=== PATIENT | female | born 1975 | race Caucasian/White ===

== ENCOUNTER 2019-03-09 23:59 | Inpatient (IN) | payer MEDICAID ==
[~2019-03-09] VITALS: Ht 165.1 cm; Wt 100.0 kg
[2019-03-10] MEDS ORDERED: normal saline 1000ML IV soln IVB ONE (00:10)
[2019-03-10 00:18] LABS: BASOPHILS # (AUTO) 0.2 X10'3 (0-0.2); BASOPHILS % (AUTO) 1.6 % (0-1); EOSINOPHILS # (AUTO) 0.2 X10'3 (0-0.9); EOSINOPHILS % (AUTO) 1.7 % (0-6); HEMATOCRIT 34.1 % (35.0-45.0); HEMOGLOBIN 11.8 g/dl (12.0-16.0); LYMPHOCYTES # (AUTO) 3.3 X10'3 (1.1-4.8); LYMPHOCYTES % (AUTO) 23.1 % (21-51); MEAN CORPUSCULAR HEMOGLOBIN 31.1 PG (27.0-31.0); MEAN CORPUSCULAR HGB CONC 34.7 g/dL (33.0-36.5); MEAN CORPUSCULAR VOLUME 89.7 FL (78-98); MEAN PLATELET VOLUME 7.7 FL (7.4-10.4); MONOCYTES # (AUTO) 0.8 X10'3 (0-0.9); MONOCYTES % (AUTO) 5.4 % (2-12); NEUTROPHILS # (AUTO) 9.7 X10'3 (1.8-7.7); NEUTROPHILS % (AUTO) 68.2 % (42-75); PLATELET COUNT 411 X10'3 (140-440); RED CELL DISTRIBUTION WIDTH 16.7 % (11.5-14.5); WHITE BLOOD COUNT 14.2 X10'3 (4.5-11.0)
[2019-03-10 00:30] LABS: ALANINE AMINOTRANSFERASE 29 U/L (12-78); ALBUMIN 2.5 G/DL (3.4-5.0); ALBUMIN/GLOBULIN RATIO 0.7 (1.1-1.5); ALKALINE PHOSPHATASE 96 IU/L (46-116); ANION GAP 6 (8-16); ASPARTATE AMINO TRANSFERASE 28 U/L (10-37); BILIRUBIN,TOTAL 0.4 MG/DL (0.1-1.0); BLOOD UREA NITROGEN 23 MG/DL (7-18); BUN/CREATININE RATIO 15.5 (6.6-38.0); CALCIUM 8.3 MG/DL (8.5-10.1); CHLORIDE 102 MMOL/L (99-107); CREATININE 1.48 MG/DL (0.40-0.90); GLUCOSE 341 MG/DL (70-104); PARTIAL THROMBOPLASTIN TIME 27 SECONDS (22-32); SODIUM 135 MMOL/L (135-145); TOTAL CARBON DIOXIDE 26.7 MMOL/L (24-32); TOTAL PROTEIN 6.3 G/DL (6.4-8.2); eGFR 38 ML/MIN
--- NOTE | 2019-03-10 00:33 | NUR ---
PT UNABLE TO VOID FOR UA AT THIS TIME.
[2019-03-10 00:35] LABS: C-REACTIVE PROTEIN 1.19 MG/DL (0.0-0.5); MAGNESIUM 1.5 MG/DL (1.5-2.4)
[2019-03-10] MEDS ORDERED: metoprolol tartrate 1mg/ml inj IV PRN (00:45)
[2019-03-10] MEDS ORDERED: insulin regular, human 10 units/0.1 ml syringe SQ ONE (00:45)
[2019-03-10] MEDS ORDERED: nitroGLYCERIN 0.4mg/hour patch TD ONE (00:45)
[2019-03-10] MEDS ORDERED: carvedilol 6.25mg tablet PO ONE (00:45)
[2019-03-10 01:00] LABS: ETHANOL < 0.010 GM/DL (0.0-0.010)
[2019-03-10] MEDS ORDERED: magnesium 2GM in 50ml NS 50 ML IV ONE (01:05)
[2019-03-10] MEDS ORDERED: LANTUS SQ (01:22)
[2019-03-10] MEDS ORDERED: INSU100C4 SQ (01:22)
[2019-03-10] MEDS ORDERED: iohexol 350MG/ML 100ml bottle IV ONE (01:32)
[2019-03-10] MEDS ORDERED: LIRA0.6P2 SQ (01:37)
[2019-03-10] MEDS ORDERED: OMEP40CA13 PO (01:37)
[2019-03-10] MEDS ORDERED: CARV-50 PO (01:37)
[2019-03-10] MEDS ORDERED: LISI-600 PO (01:37)
[2019-03-10] MEDS ORDERED: IBUP-1986 PO (01:37)
[2019-03-10] MEDS ORDERED: LURA40TA3 PO (01:37)
[2019-03-10] MEDS ORDERED: METO-292 PO (01:37)
[2019-03-10] MEDS ORDERED: GABA-532 PO (01:37)
[2019-03-10] MEDS ORDERED: CHOL500049 PO (01:37)
[2019-03-10] MEDS ORDERED: CETI10TA15 PO (01:37)
[2019-03-10] MEDS ORDERED: CLOP75TA35 PO (01:37)
[2019-03-10] MEDS ORDERED: NITR0.4T51 SL (01:37)
[2019-03-10] MEDS ORDERED: METF500T PO (01:39)
--- NOTE | 2019-03-10 01:46 | NUR ---
Patient to MRI with Tech.
[2019-03-10] MEDS: MESSAGE TO NURSING PO NR ×2 (02:00→10:00)
--- NOTE | 2019-03-10 02:03 | NUR ---
Patient back for radiology and resting comfortably.
--- NOTE | 2019-03-10 02:15 | NUR ---
Patient up to bedside commode
[2019-03-10] MEDS ORDERED: magnesium hydroxide 30ml (MOM) UD suspension PO PRN (04:00)
[2019-03-10] MEDS ORDERED: acetaminophen 325mg tablet PO PRN (04:00)
[2019-03-10] MEDS ORDERED: glucagon, human recombinant 1mg kit SUBCUT PRN (04:05)
[2019-03-10] MEDS ORDERED: dextrose ORAL solution 15 GM/59 ML bottle PO PRN (04:05)
[2019-03-10] MEDS ORDERED: MESSAGE TO PHARMACY PO ONE (04:05)
[2019-03-10] MEDS ORDERED: dextrose 50%-water 50ml dispensing syringe IV PRN ×2 (04:05)
[2019-03-10] MEDS ORDERED: nitroGLYCERIN 0.4mg SUBLingual tab SL PRN (04:05)
[2019-03-10 04:13] LABS: CLARITY,URINE CLEAR (Clear); COLOR,URINE YELLOW (Yellow); GLUCOSE, URINE 500 mg/dl (Neg); KETONES,URINE NEGATIVE (Neg); LEUKOCYTE ESTERASE ,URINE NEGATIVE (Neg); NITRITES, URINE NEGATIVE (Neg); OCCULT BLOOD,URINE MODERATE (Neg); PROTEIN,URINE >=300 mg/dl (Neg); UROBILINOGEN,URINE 0.2 E.U/dL (0.2-1.0)
[2019-03-10 04:15] LABS: UA COLLECTION TYPE NON-SPECIFIED
[2019-03-10 04:18] LABS: URINE AMPHETAMINE SCREEN NEGATIVE (Neg); URINE BARBITUATE SCREEN NEGATIVE (Neg); URINE BENZODIAZEPINES SCREEN NEGATIVE (Neg); URINE CANNABINOID SCREEN NEGATIVE (Neg); URINE COCAINE SCREEN NEGATIVE (Neg); URINE METHADONE SCREEN NEGATIVE (Neg); URINE OPIATE SCREEN NEGATIVE (Neg); URINE PHENCYCLIDINE SCREEN NEGATIVE (Neg)
[2019-03-10 04:20] LABS: BACTERIA,URINE FEW /HPF (Neg); MUCUS STRANDS NONE SEEN /LPF (Neg); RBC,URINE 0-2 /HPF (0-2); SQUAMOUS EPITHELIAL CELL,UR MANY /LPF (FEW); WBC,URINE 0-4 /HPF (0-4)
[2019-03-10 04:50] LABS: HEMOGLOBIN A1C 11.4 % (4.5-6.2)
--- NOTE | 2019-03-10 05:22 | NUR ---
CRITICAL TROPONIN CALLED TO MD MILLER: 3 HR TROP 6.8, AWARE, PATIENT TRANSFERRING TO 3021
--- NOTE | 2019-03-10 05:30 | NUR ---
received report from Sesar MAYBERRY ACCShivam, had oportunity to ask questions. awaiting pt transfer to unit.
[2019-03-10 06:00] VITALS: BP 144/86
--- NOTE | 2019-03-10 06:01 | NUR ---
spoke with of pt when pt was being admitted she pulled/picked at her many tele patches that were on herself, noticed and told her to stop picking. when i adressed this he stated that they (family) have to remind her not to pick because she does it so much. per of pt: she has been scratching at herself for about the past year following her last NE. they live together and does not itch or have any bites or weston on his body like she/pt does.
--- NOTE | 2019-03-10 06:18 | NUR ---
Patient in room PCU 3021. I have received report from SHAWANDA Calderon and had the opportunity to ask questions and assume patient care.
--- NOTE | 2019-03-10 06:22 | NUR ---
Problems reprioritized. Patient report given, questions answered & plan of care reviewed with Jazmín MAYBERRY.
[2019-03-10] MEDS ORDERED: carVEDilol 12.5mg tablet PO SCH (08:00)
[2019-03-10] MEDS: enoxaparin 100mg/ml syringe SUBCUT SCH ×2 (08:19→22:06)
[2019-03-10] MEDS: clopidogrel 75mg tablet PO SCH (08:19)
[2019-03-10] MEDS: pantoprazole 40mg Tablet.DR PO SCH (08:20)
[2019-03-10] MEDS: lisinopril 20mg tablet PO SCH (08:21)
[2019-03-10] MEDS: gabapentin 300mg capsule PO SCH ×3 (08:22→22:06)
[2019-03-10] MEDS ORDERED: potassium Cl 20 mEq SR tablet PO PRN ×2 (10:15)
[2019-03-10] MEDS ORDERED: potassium CL 10mEq/100ml bag 100 ML IV PRN (10:15)
[2019-03-10] MEDS ORDERED: magnesium Cl slow-release 64mg tablet PO PRN (10:15)
[2019-03-10] MEDS: K and/or MAG REPLACEMENT MC SCH ×2 (10:15→21:53)
[2019-03-10] MEDS ORDERED: magnesium 4gm in 100ml NS 100 ML IV PRN (10:15)
[2019-03-10 11:00] VITALS: BP 122/76
[2019-03-10] MEDS: normal saline 1000ml 1,000 ML IV SCH (11:16)
[2019-03-10 15:00] VITALS: BP 173/107
--- NOTE | 2019-03-10 15:44 | NUR ---
[id number] MESSAGE: Zeina Samson Rm 3021 BP 172/102 Hr 104 Alona Noyola ext [phone]
[2019-03-10] MEDS ORDERED: labetalol 20mg/4ml (5mg/ml) syringe IV PRN (16:00)
[2019-03-10] MEDS ORDERED: labetalol 20mg/4ml (5mg/ml) syringe IV ONE (16:00)
--- NOTE | 2019-03-10 16:36 | NUR ---
PER RT PATIENT PFT RESULTS ARE POOR, INSTRUCTOR APPAREL MANUFACTURE MADE AWARE OF PFT RESULTS.
[2019-03-10 19:00] VITALS: BP 149/66
--- NOTE | 2019-03-10 19:00 | NUR ---
Patient in room PCU 3021. I have received report from Jazmín MAYBERRY and had the opportunity to ask questions and assume patient care.
--- NOTE | 2019-03-10 19:02 | NUR ---
Problems reprioritized. Patient report given, questions answered & plan of care reviewed with SHAWANDA Lopez.
[2019-03-10] MEDS: insulin Lispro (HumaLOG) vial - multi-dose SQ SCH (19:42)
[2019-03-10] MEDS ORDERED: insulin glargine (Lantus) pen - multi-dose SQ SCH (21:00)
[2019-03-10] MEDS: insulin glargine (Lantus) pen - multi-dose SQ SCH (22:01)
[2019-03-10] MEDS: carVEDilol 12.5mg tablet PO SCH (22:04)
[2019-03-10] MEDS: lurasidone 20mg tablet PO SCH (22:05)
[2019-03-10 22:30] VITALS: BP 145/70
--- NOTE | 2019-03-10 23:10 | NUR ---
Nitro patch was found on patient, which was supposed to be DC'd at 1200. Patch is now removed.
[2019-03-11 02:30] VITALS: BP 143/72
[2019-03-11] MEDS: normal saline 1000ml 1,000 ML IV SCH (04:10)
[2019-03-11 06:00] VITALS: BP 138/94
--- NOTE | 2019-03-11 06:00 | NUR ---
Patient in room PCU 3021. I have received report from Jessica MAYBERRY and had the opportunity to ask questions and assume patient care.
[2019-03-11 06:12] LABS: BASOPHILS # (AUTO) 0.1 X10'3 (0-0.2); BASOPHILS % (AUTO) 0.5 % (0-1); EOSINOPHILS # (AUTO) 0.3 X10'3 (0-0.9); EOSINOPHILS % (AUTO) 2.8 % (0-6); HEMATOCRIT 31.5 % (35.0-45.0); HEMOGLOBIN 10.6 g/dl (12.0-16.0); LYMPHOCYTES # (AUTO) 2.6 X10'3 (1.1-4.8); LYMPHOCYTES % (AUTO) 21.4 % (21-51); MEAN CORPUSCULAR HEMOGLOBIN 30.9 PG (27.0-31.0); MEAN CORPUSCULAR HGB CONC 33.7 g/dL (33.0-36.5); MEAN CORPUSCULAR VOLUME 91.7 FL (78-98); MEAN PLATELET VOLUME 8.2 FL (7.4-10.4); MONOCYTES # (AUTO) 0.8 X10'3 (0-0.9); MONOCYTES % (AUTO) 6.6 % (2-12); NEUTROPHILS # (AUTO) 8.3 X10'3 (1.8-7.7); NEUTROPHILS % (AUTO) 68.7 % (42-75); PLATELET COUNT 372 X10'3 (140-440); RED BLOOD COUNT 3.43 X10'6 (4.20-5.60); RED CELL DISTRIBUTION WIDTH 16.6 % (11.5-14.5)
[2019-03-11 06:24] LABS: ALANINE AMINOTRANSFERASE 28 U/L (12-78); ALBUMIN 2.4 G/DL (3.4-5.0); ALBUMIN/GLOBULIN RATIO 0.7 (1.1-1.5); ALKALINE PHOSPHATASE 91 IU/L (46-116); ANION GAP 6 (8-16); ASPARTATE AMINO TRANSFERASE 18 U/L (10-37); BILIRUBIN,TOTAL 0.5 MG/DL (0.1-1.0); BLOOD UREA NITROGEN 28 MG/DL (7-18); BUN/CREATININE RATIO 20.4 (6.6-38.0); CALCIUM 8.1 MG/DL (8.5-10.1); CHLORIDE 104 MMOL/L (99-107); CHOL/HDL RATIO 6.8 (0.00-4.99); CHOLESTEROL 232 MG/DL (0-200); CREATININE 1.37 MG/DL (0.40-0.90); GLUCOSE 220 MG/DL (70-104); HDL CHOLESTEROL 34 MG/DL (35-60); LDL CHOLESTEROL 146 MG/DL (50-100); MAGNESIUM 1.9 MG/DL (1.5-2.4); PHOSPHORUS 3.4 MG/DL (2.3-4.5); POTASSIUM 3.9 MMOL/L (3.5-5.1); SODIUM 136 MMOL/L (135-145); TOTAL PROTEIN 5.9 G/DL (6.4-8.2); TRIGLYCERIDES 341 MG/DL (20-135); eGFR 42 ML/MIN
--- NOTE | 2019-03-11 07:00 | NUR ---
Problems reprioritized. Patient report given, questions answered & plan of care reviewed with Deirdre MAYBERRY.
[2019-03-11] MEDS: K and/or MAG REPLACEMENT MC SCH ×2 (08:00→20:00)
[2019-03-11] MEDS: lisinopril 20mg tablet PO SCH (08:33)
[2019-03-11] MEDS: carVEDilol 12.5mg tablet PO SCH ×2 (08:33→20:00)
[2019-03-11] MEDS: pantoprazole 40mg Tablet.DR PO SCH (08:33)
[2019-03-11] MEDS: clopidogrel 75mg tablet PO SCH (08:33)
[2019-03-11] MEDS: gabapentin 300mg capsule PO SCH (08:33)
[2019-03-11] MEDS: enoxaparin 100mg/ml syringe SUBCUT SCH ×2 (08:34→20:17)
--- NOTE | 2019-03-11 09:25 | NUR ---
Spoke with Dr. Bennett via telephone. New orders given: STAT ABG on RA, and fax results to his office.
--- NOTE | 2019-03-11 09:28 | NUR ---
Orders for STAT ABG have been placed and RT has been paged. Hayley Joseph has been informed. Will continue to monitor. Addendum: 03/11/19 at 0934 by Ines Thomas RN RT present and has been informed of Dr. Bennett's orders. Will await results then fax as ordered. Addendum: 03/11/19 at 1215 by Ines Thomas RN 1115: New Orders from Dr. Bennett: Patient may eat because the angiogram is to be canceled. Will let the primary RNOpal know.
[2019-03-11] MEDS: atorvastatin 20mg tablet PO SCH (09:45)
[2019-03-11] MEDS: fenofibrate 145mg tablet PO SCH (09:45)
[2019-03-11] MEDS: MESSAGE TO NURSING PO NR (10:00)
[2019-03-11 10:11] LABS: ABG BASE EXCESS -1.2 mmol/L (-2.0-3.0); ABG HCO3 23.4 mmol/L (22.0-26.0); ABG OXYGEN SATURATION 88.6 % (95-98); ABG PCO2 (T) 38.6 mmHg (35.0-45.0); FCOHb 0.5 % (0.5-1.5); FMetHb 0.3 % (0.3-1.12); FO2Hb 87.9 % (94-100); TOTAL HEMOGLOBIN 11.6 G/dl (12.0-16.0)
[2019-03-11 11:00] VITALS: BP 120/73
[2019-03-11] MEDS: insulin Lispro (HumaLOG) vial - multi-dose SQ SCH ×2 (11:03→14:15)
--- NOTE | 2019-03-11 13:23 | NUR ---
Kip FRAZIER regarding frequent episodes of apnea PAGER ID: [phone] MESSAGE: [phone] Norman Diego PtJacqueline c frequent episodes of apnea. SpO2 76-97%. Pale skin/lips. No orders for O2. Per mother, pt. had CVA and WI in recovery room post stent in October and breathing problems started. Pls advise. Opal 4798
--- NOTE | 2019-03-11 14:32 | NUR ---
PAGER ID: [phone] MESSAGE: [phone] Zeina Diego: RT is asking did you want to do another ABG or just the one done at 1000 this morning, CT is also asking if you still want the CT of head still? Thanks Vicky
[2019-03-11 15:00] VITALS: BP 131/85
--- NOTE | 2019-03-11 17:25 | NUR ---
Kip FRAZIER to update on NGT PAGER ID: [phone] MESSAGE: [phone] Platelet count came back at 41. Blood bank has restocked on O+ platelets. Would you like to transfuse? Opal Recinos Addendum: 03/11/19 at 1746 by Opal Marshall RN Incorrect text PAGER ID: [phone] MESSAGE: [phone] Norman Diego [facility] still not placed. Attempted x6. Heavy resistance in both nares. May have deviated septum. Opal Robert [id number]
--- NOTE | 2019-03-11 18:45 | NUR ---
Problems reprioritized. Patient report given, questions answered & plan of care reviewed with Birdie MAYBERRY.
--- NOTE | 2019-03-11 18:52 | NUR ---
Initial: Pt admit s/p NSTEMI. Pt s/p BSS today with ST recs NPO and to reassess d/t pt aspirating on foods and liquids. Pt with an active CHO controlled diet order, d/w RN to change to NPO given ST recs. Prior to BSS, pt documented with 100% PO intake at dinner last night. Pt to get an NG tube for center medical specialist per MD notes. Pt with hx T2DM with current A1c 11.4. Per H&P patient's SO reports pt hasn't been taking her medications for a few days. Pt seen at bedside with multiple family members present. 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 Patient's SO reports he is unable to help her read the meter during the day as he is at work and pt reports no additional friends/family are available to assist her. Patient's mother reports she was previously told by an MD that she would be able to get a talking glucometer however this has not happened yet. RD called CM and left a VM for resources. Pt reports she currently does not follow any special diet for DM management and is unsure of what foods contain carbs. D/t family members at bedside, pt requests RD f/u at another time for verbal review of DM management. Written DM education with referral to outpatient DM class and RD contact information provided. Pt states that she is starving as she hasn't eaten anything today, ST notes indicate a f/u BSS will be performed tomorrow. Pt reports she has previously had difficulty swallowing in the past however did not require texture modification. Pt denies food allergies or constipation/diarrhea. LBM 03/10. Will continue to follow. Recommendations: 1) Advance to heart healthy CHO controlled diet as medically indicated per ST 2) Heart healthy education and reinforcement of DM education prior to discharge 3) Routine bowel care 4) Wt per rx Addendum: 03/11/19 at [address] Amended: Links added.
[2019-03-11 19:00] VITALS: BP 142/93
[2019-03-11] MEDS: lurasidone 20mg tablet PO SCH (20:28)
[2019-03-11] MEDS: gabapentin 100mg capsule PO SCH (20:28)
[2019-03-11] MEDS: insulin glargine (Lantus) pen - multi-dose SQ SCH (21:00)
[2019-03-11 23:00] VITALS: BP 149/74
[2019-03-12 03:00] VITALS: BP 152/84
[2019-03-12 06:00] VITALS: BP 162/92
[2019-03-12 06:24] LABS: BASOPHILS # (AUTO) 0.1 X10'3 (0-0.2); BASOPHILS % (AUTO) 0.5 % (0-1); EOSINOPHILS # (AUTO) 0.3 X10'3 (0-0.9); EOSINOPHILS % (AUTO) 2.3 % (0-6); HEMATOCRIT 30.7 % (35.0-45.0); HEMOGLOBIN 10.2 g/dl (12.0-16.0); LYMPHOCYTES % (AUTO) 16.1 % (21-51); MEAN CORPUSCULAR HEMOGLOBIN 30.8 PG (27.0-31.0); MEAN CORPUSCULAR HGB CONC 33.4 g/dL (33.0-36.5); MEAN CORPUSCULAR VOLUME 92.3 FL (78-98); MEAN PLATELET VOLUME 8.4 FL (7.4-10.4); MONOCYTES # (AUTO) 0.8 X10'3 (0-0.9); MONOCYTES % (AUTO) 6.1 % (2-12); NEUTROPHILS # (AUTO) 9.2 X10'3 (1.8-7.7); PLATELET COUNT 358 X10'3 (140-440); RED BLOOD COUNT 3.33 X10'6 (4.20-5.60); RED CELL DISTRIBUTION WIDTH 16.4 % (11.5-14.5); WHITE BLOOD COUNT 12.3 X10'3 (4.5-11.0)
--- NOTE | 2019-03-12 06:33 | NUR ---
Patient in room PCU 3021. I have received report from SHAWANDA Packer and had the opportunity to ask questions and assume patient care.
[2019-03-12 06:46] LABS: ALANINE AMINOTRANSFERASE 27 U/L (12-78); ALBUMIN 2.3 G/DL (3.4-5.0); ALBUMIN/GLOBULIN RATIO 0.7 (1.1-1.5); ALKALINE PHOSPHATASE 84 IU/L (46-116); ANION GAP 7 (8-16); ASPARTATE AMINO TRANSFERASE 21 U/L (10-37); BILIRUBIN,TOTAL 0.8 MG/DL (0.1-1.0); BLOOD UREA NITROGEN 27 MG/DL (7-18); BUN/CREATININE RATIO 20.9 (6.6-38.0); CALCIUM 8.2 MG/DL (8.5-10.1); CHLORIDE 107 MMOL/L (99-107); CREATININE 1.29 MG/DL (0.40-0.90); GLUCOSE 140 MG/DL (70-104); PHOSPHORUS 3.4 MG/DL (2.3-4.5); POTASSIUM 3.9 MMOL/L (3.5-5.1); SODIUM 139 MMOL/L (135-145); TOTAL CARBON DIOXIDE 24.9 MMOL/L (24-32); TOTAL PROTEIN 5.8 G/DL (6.4-8.2); eGFR 45 ML/MIN
[2019-03-12] MEDS: insulin Lispro (HumaLOG) vial - multi-dose SQ SCH ×3 (07:59→19:03)
[2019-03-12] MEDS: K and/or MAG REPLACEMENT MC SCH ×2 (08:00→20:00)
[2019-03-12] MEDS: enoxaparin 100mg/ml syringe SUBCUT SCH ×2 (08:21→20:44)
[2019-03-12] MEDS: pantoprazole 40 MG vial IV SCH (08:21)
[2019-03-12] MEDS: gabapentin 100mg capsule PO SCH ×3 (08:33→20:44)
[2019-03-12] MEDS: carVEDilol 12.5mg tablet PO SCH ×2 (08:33→20:44)
[2019-03-12] MEDS: lisinopril 20mg tablet PO SCH (08:34)
[2019-03-12] MEDS: atorvastatin 20mg tablet PO SCH (08:34)
[2019-03-12] MEDS: clopidogrel 75mg tablet PO SCH (08:34)
[2019-03-12] MEDS: fenofibrate 145mg tablet PO SCH (08:34)
[2019-03-12] MEDS: normal saline 1000ml 1,000 ML IV SCH (08:39)
--- NOTE | 2019-03-12 10:18 | NUR ---
PAGER ID: [phone] MESSAGE: [phone]: Mali Bennett just consulted and the patient/family are extremely unhappy with him and want another forestry aid or to transfer to another hospital. :( Joleen [phone]
--- NOTE | 2019-03-12 11:59 | NUR ---
Refused 1100 vitals
[2019-03-12 15:00] VITALS: BP 181/97
--- NOTE | 2019-03-12 16:13 | NUR ---
PAGER ID: [phone] MESSAGE: [phone] Zeina Mali BP 168/101. Do you want anything given for the BP or just monitor it? SHAWANDA Blandon Ext [phone]
[2019-03-12 18:00] VITALS: BP 175/105
--- NOTE | 2019-03-12 18:41 | NUR ---
Problems reprioritized. Patient report given, questions answered & plan of care reviewed with SHAWANDA Sorensen.
[2019-03-12] MEDS: mag hydrox/Alum hydrox/simeth 30ml oral suspension PO PRN (20:43)
[2019-03-12] MEDS: lurasidone 20mg tablet PO SCH (20:44)
[2019-03-12] MEDS: insulin glargine (Lantus) pen - multi-dose SQ SCH (20:57)
[2019-03-12] MEDS: diltiazem CD 120mg capsule (once-daily) PO SCH (22:32)
[2019-03-12 23:00] VITALS: BP 118/56
[2019-03-13 02:00] VITALS: BP 126/80
[2019-03-13 06:00] VITALS: BP 147/91
--- NOTE | 2019-03-13 06:00 | NUR ---
Patient in room PCU 3021. I have received report from Ophelia MAYBERRY and had the opportunity to ask questions and assume patient care.
[2019-03-13 06:29] LABS: BASOPHILS # (AUTO) 0.1 X10'3 (0-0.2); BASOPHILS % (AUTO) 0.6 % (0-1); EOSINOPHILS # (AUTO) 0.3 X10'3 (0-0.9); HEMATOCRIT 30.3 % (35.0-45.0); HEMOGLOBIN 10.4 g/dl (12.0-16.0); LYMPHOCYTES # (AUTO) 1.8 X10'3 (1.1-4.8); MEAN CORPUSCULAR HEMOGLOBIN 31.2 PG (27.0-31.0); MEAN CORPUSCULAR HGB CONC 34.4 g/dL (33.0-36.5); MEAN CORPUSCULAR VOLUME 90.7 FL (78-98); MEAN PLATELET VOLUME 8.3 FL (7.4-10.4); MONOCYTES # (AUTO) 0.8 X10'3 (0-0.9); MONOCYTES % (AUTO) 7.2 % (2-12); NEUTROPHILS # (AUTO) 8.2 X10'3 (1.8-7.7); NEUTROPHILS % (AUTO) 73.2 % (42-75); PLATELET COUNT 387 X10'3 (140-440); RED BLOOD COUNT 3.34 X10'6 (4.20-5.60); RED CELL DISTRIBUTION WIDTH 16.8 % (11.5-14.5); WHITE BLOOD COUNT 11.3 X10'3 (4.5-11.0)
--- NOTE | 2019-03-13 06:35 | NUR ---
Problems reprioritized. Patient report given, questions answered & plan of care reviewed with Deirdre MAYBERRY.
[2019-03-13 06:50] LABS: ALANINE AMINOTRANSFERASE 26 U/L (12-78); ALBUMIN 2.3 G/DL (3.4-5.0); ALBUMIN/GLOBULIN RATIO 0.6 (1.1-1.5); ALKALINE PHOSPHATASE 83 IU/L (46-116); ANION GAP 7 (8-16); ASPARTATE AMINO TRANSFERASE 16 U/L (10-37); BILIRUBIN,TOTAL 0.6 MG/DL (0.1-1.0); BLOOD UREA NITROGEN 24 MG/DL (7-18); BUN/CREATININE RATIO 19.5 (6.6-38.0); CALCIUM 8.2 MG/DL (8.5-10.1); CHLORIDE 110 MMOL/L (99-107); CREATININE 1.23 MG/DL (0.40-0.90); GLUCOSE 109 MG/DL (70-104); MAGNESIUM 2.2 MG/DL (1.5-2.4); PHOSPHORUS 2.8 MG/DL (2.3-4.5); POTASSIUM 3.9 MMOL/L (3.5-5.1); SODIUM 142 MMOL/L (135-145); eGFR 47 ML/MIN
[2019-03-13] MEDS: K and/or MAG REPLACEMENT MC SCH ×2 (08:00→21:07)
[2019-03-13] MEDS: pantoprazole 40 MG vial IV SCH (09:06)
[2019-03-13] MEDS: atorvastatin 20mg tablet PO SCH (09:07)
[2019-03-13] MEDS: enoxaparin 100mg/ml syringe SUBCUT SCH (09:07)
[2019-03-13] MEDS: clopidogrel 75mg tablet PO SCH (09:10)
[2019-03-13] MEDS: lisinopril 20mg tablet PO SCH (09:10)
[2019-03-13] MEDS: diltiazem CD 120mg capsule (once-daily) PO SCH (09:10)
[2019-03-13] MEDS: fenofibrate 145mg tablet PO SCH (09:10)
[2019-03-13] MEDS: aspirin 81mg tablet.DR PO SCH (09:11)
[2019-03-13] MEDS: gabapentin 100mg capsule PO SCH ×2 (09:11→12:45)
[2019-03-13] MEDS: carVEDilol 12.5mg tablet PO SCH ×2 (09:11→19:06)
[2019-03-13 11:00] VITALS: BP 148/89
[2019-03-13] MEDS: ondansetron/PF 4mg/2ml inj IV PRN (13:21)
[2019-03-13] MEDS: insulin Lispro (HumaLOG) vial - multi-dose SQ SCH ×2 (13:32→19:04)
--- NOTE | 2019-03-13 13:45 | NUR ---
Pagemeli FRAZIER regarding pt. request for anti-diarrheal. PAGER ID: [phone] MESSAGE: [phone] Rashaun Diego. C/o diarrhea. States nutritional shake upsets stomach. Requesting for anti-diarrheal. Opal [id number]
[2019-03-13] MEDS ORDERED: loperamide 2mg capsule PO ONE (14:20)
--- NOTE | 2019-03-13 15:16 | NUR ---
Paged to update on stool sample PAGER ID: [phone] MESSAGE: [phone] Norman Samson Lab rejected stool sample for C-diff stating "too formed". Sample was very gelatinous/a lot of mucus. [place]-brown colored c pungent odor but not distinctly Cdiff. Blanchable redness to sacrococcyx Opal U 2290
[2019-03-13] MEDS: mag hydrox/Alum hydrox/simeth 30ml oral suspension PO PRN (16:55)
[2019-03-13 18:30] VITALS: BP 107/56
--- NOTE | 2019-03-13 18:39 | NUR ---
Problems reprioritized. Patient report given, questions answered & plan of care reviewed with Jessica MAYBERRY.
--- NOTE | 2019-03-13 18:40 | NUR ---
Patient in room PCU 3018. I have received report from Deirdre MAYBERRY and had the opportunity to ask questions and assume patient care.
[2019-03-13] MEDS: insulin glargine (Lantus) pen - multi-dose SQ SCH (22:29)
[2019-03-13 22:30] VITALS: BP 125/78
[2019-03-14] VITALS (7 sets, daily range): BP systolic 136–164; BP diastolic 88–96
--- NOTE | 2019-03-14 06:09 | NUR ---
Problems reprioritized. Patient report given, questions answered & plan of care reviewed with Chika MAYBERRY.
[2019-03-14 06:19] LABS: BASOPHILS % (AUTO) 0.4 % (0-1); EOSINOPHILS # (AUTO) 0.2 X10'3 (0-0.9); EOSINOPHILS % (AUTO) 1.6 % (0-6); HEMATOCRIT 30.4 % (35.0-45.0); HEMOGLOBIN 10.3 g/dl (12.0-16.0); LYMPHOCYTES # (AUTO) 1.8 X10'3 (1.1-4.8); LYMPHOCYTES % (AUTO) 17.2 % (21-51); MEAN CORPUSCULAR HEMOGLOBIN 31.1 PG (27.0-31.0); MEAN CORPUSCULAR HGB CONC 33.7 g/dL (33.0-36.5); MEAN CORPUSCULAR VOLUME 92.2 FL (78-98); MEAN PLATELET VOLUME 8.2 FL (7.4-10.4); MONOCYTES # (AUTO) 0.8 X10'3 (0-0.9); MONOCYTES % (AUTO) 7.9 % (2-12); NEUTROPHILS # (AUTO) 7.5 X10'3 (1.8-7.7); NEUTROPHILS % (AUTO) 72.9 % (42-75); PLATELET COUNT 359 X10'3 (140-440); WHITE BLOOD COUNT 10.3 X10'3 (4.5-11.0)
--- NOTE | 2019-03-14 06:32 | NUR ---
Patient in room PCU 3008. I have received report from Michael and had the opportunity to ask questions and assume patient care.
[2019-03-14 06:40] LABS: ALANINE AMINOTRANSFERASE 27 U/L (12-78); ALBUMIN 2.2 G/DL (3.4-5.0); ALBUMIN/GLOBULIN RATIO 0.6 (1.1-1.5); ALKALINE PHOSPHATASE 80 IU/L (46-116); ANION GAP 6 (8-16); ASPARTATE AMINO TRANSFERASE 17 U/L (10-37); BILIRUBIN,TOTAL 0.5 MG/DL (0.1-1.0); CHLORIDE 110 MMOL/L (99-107); CREATININE 1.26 MG/DL (0.40-0.90); GLUCOSE 96 MG/DL (70-104); POTASSIUM 4.1 MMOL/L (3.5-5.1); SODIUM 143 MMOL/L (135-145); TOTAL CARBON DIOXIDE 27.3 MMOL/L (24-32); TOTAL PROTEIN 5.8 G/DL (6.4-8.2); eGFR 46 ML/MIN
[2019-03-14 07:15] LABS: BLOOD UREA NITROGEN 22 MG/DL (7-18); BUN/CREATININE RATIO 17.5 (6.6-38.0)
[2019-03-14] MEDS: K and/or MAG REPLACEMENT MC SCH ×2 (08:00→19:43)
[2019-03-14] MEDS: aspirin 81mg tablet.DR PO SCH (08:32)
[2019-03-14] MEDS: lisinopril 20mg tablet PO SCH (08:32)
[2019-03-14] MEDS: clopidogrel 75mg tablet PO SCH (08:32)
[2019-03-14] MEDS: pantoprazole 40mg Tablet.DR PO SCH (08:33)
[2019-03-14] MEDS: carVEDilol 12.5mg tablet PO SCH ×2 (08:33→19:45)
[2019-03-14] MEDS: gabapentin 100mg capsule PO SCH (08:34)
[2019-03-14] MEDS: atorvastatin 20mg tablet PO SCH (08:35)
[2019-03-14] MEDS: diltiazem CD 120mg capsule (once-daily) PO SCH (08:35)
[2019-03-14] MEDS: fenofibrate 145mg tablet PO SCH (08:35)
[2019-03-14] MEDS: insulin Lispro (HumaLOG) vial - multi-dose SQ SCH ×3 (09:07→19:18)
[2019-03-14] MEDS: ondansetron/PF 4mg/2ml inj IV PRN (11:21)
--- NOTE | 2019-03-14 15:25 | NUR ---
Reassessment: Pt f/u BSS 03/[address] pureed food with nectar thick liquids and must take small bites and sips. PO diet has been advanced as such and pt documented with 50-75% PO intake yesterday, pending documentation of PO intake for today. Pt and SO seen at bedside. SO reports he has been helping pt with meals and encouraging PO intake. Pt reports she dislikes the pork and peas and requests thickened cranberry juice TID, d/w dietary. Pt did not want to further discuss DM nutrition therapy education. Pt with elevated lipid panel, written and verbal heart healthy nutrition therapy education provided. Pt already with RD contact information. [facility] 03/13. Will continue to follow closely. Recommendations: 1) Continue pureed CHO controlled diet with nectar thick liquids per ST 2) Pt would benefit from the addition of heart healthy diet once PO intake improves given elevated lipid panel 3) Routine bowel care 4) Wt per rx Addendum: 03/14/19 at [address] Amended: Links added.
--- NOTE | 2019-03-14 15:47 | NUR ---
Page sent to Dr. Pringle PAGER ID: [phone] MESSAGE: [phone] Brandie Pastrana, Pt. complains of severe nausea. Zofran given 4 hrs ago. Please advise, Chika MAYBERRY [phone]
[2019-03-14] MEDS: metoclopramide 10mg tablet PO SCH ×2 (16:42→19:46)
--- NOTE | 2019-03-14 18:20 | NUR ---
Problems reprioritized. Patient report given, questions answered & plan of care reviewed with Elyse.
--- NOTE | 2019-03-14 18:21 | NUR ---
Patient in room PCU 3021. I have received report from SHAWANDA Farr and had the opportunity to ask questions and assume patient care. Patient is sitting up in bed eating dinner w/o problem. She is A&O x3, but speech is slurred and she has delayed response time, due to CVA. I will continue to monitor.
[2019-03-14] MEDS: insulin glargine (Lantus) pen - multi-dose SQ SCH (21:01)
[2019-03-15] MEDS: ondansetron/PF 4mg/2ml inj IV PRN ×2 (00:08→10:30)
[2019-03-15 02:00] VITALS: BP 148/90
--- NOTE | 2019-03-15 06:00 | NUR ---
Patient in room PCU 3021. I have received report from Elyse and had the opportunity to ask questions and assume patient care.
--- NOTE | 2019-03-15 06:15 | NUR ---
Problems reprioritized. Patient report given, questions answered & plan of care reviewed with SHAWANDA Farr.
[2019-03-15 06:23] LABS: BASOPHILS % (AUTO) 0.3 % (0-1); EOSINOPHILS # (AUTO) 0.2 X10'3 (0-0.9); EOSINOPHILS % (AUTO) 1.7 % (0-6); HEMATOCRIT 32.6 % (35.0-45.0); HEMOGLOBIN 10.9 g/dl (12.0-16.0); LYMPHOCYTES # (AUTO) 1.7 X10'3 (1.1-4.8); LYMPHOCYTES % (AUTO) 16.2 % (21-51); MEAN CORPUSCULAR HEMOGLOBIN 31.4 PG (27.0-31.0); MEAN CORPUSCULAR HGB CONC 33.5 g/dL (33.0-36.5); MEAN CORPUSCULAR VOLUME 93.9 FL (78-98); MEAN PLATELET VOLUME 8.2 FL (7.4-10.4); MONOCYTES % (AUTO) 9.2 % (2-12); NEUTROPHILS # (AUTO) 7.6 X10'3 (1.8-7.7); NEUTROPHILS % (AUTO) 72.6 % (42-75); PLATELET COUNT 388 X10'3 (140-440); RED BLOOD COUNT 3.47 X10'6 (4.20-5.60); RED CELL DISTRIBUTION WIDTH 17.4 % (11.5-14.5); WHITE BLOOD COUNT 10.4 X10'3 (4.5-11.0)
[2019-03-15 06:49] LABS: ALANINE AMINOTRANSFERASE 31 U/L (12-78); ALBUMIN 2.4 G/DL (3.4-5.0); ALBUMIN/GLOBULIN RATIO 0.6 (1.1-1.5); ALKALINE PHOSPHATASE 79 IU/L (46-116); ANION GAP 5 (8-16); ASPARTATE AMINO TRANSFERASE 22 U/L (10-37); BILIRUBIN,TOTAL 0.6 MG/DL (0.1-1.0); BLOOD UREA NITROGEN 20 MG/DL (7-18); BUN/CREATININE RATIO 15.6 (6.6-38.0); CALCIUM 8.4 MG/DL (8.5-10.1); CHLORIDE 110 MMOL/L (99-107); CREATININE 1.28 MG/DL (0.40-0.90); GLUCOSE 72 MG/DL (70-104); MAGNESIUM 2.1 MG/DL (1.5-2.4); PHOSPHORUS 3.5 MG/DL (2.3-4.5); POTASSIUM 4.3 MMOL/L (3.5-5.1); SODIUM 144 MMOL/L (135-145); TOTAL CARBON DIOXIDE 29.2 MMOL/L (24-32); TOTAL PROTEIN 6.3 G/DL (6.4-8.2); eGFR 45 ML/MIN
[2019-03-15 07:00] VITALS: BP 152/84
[2019-03-15] MEDS: K and/or MAG REPLACEMENT MC SCH ×2 (08:00→20:00)
[2019-03-15] MEDS: pantoprazole 40mg Tablet.DR PO SCH (08:20)
[2019-03-15] MEDS: lisinopril 20mg tablet PO SCH (08:20)
[2019-03-15] MEDS: clopidogrel 75mg tablet PO SCH (08:20)
[2019-03-15] MEDS: carVEDilol 12.5mg tablet PO SCH ×2 (08:21→21:00)
[2019-03-15] MEDS: diltiazem CD 120mg capsule (once-daily) PO SCH (08:21)
[2019-03-15] MEDS: aspirin 81mg tablet.DR PO SCH (08:21)
[2019-03-15] MEDS: gabapentin 100mg capsule PO SCH (08:21)
[2019-03-15] MEDS: fenofibrate 145mg tablet PO SCH (08:21)
[2019-03-15] MEDS: atorvastatin 20mg tablet PO SCH (08:22)
[2019-03-15] MEDS: metoclopramide 10mg tablet PO SCH ×2 (08:24→21:01)
[2019-03-15] MEDS: insulin Lispro (HumaLOG) vial - multi-dose SQ SCH ×3 (08:47→18:59)
[2019-03-15 11:00] VITALS: BP 150/98
--- NOTE | 2019-03-15 14:57 | NUR ---
Patient has been more ambulatory today, attempting to get up unassisted when needing/wanting things. Educated patient that although she is feeling better, she is still uneasy on her feet. Pt. non complaint with instructions, tab alarm placed, is aware and patient agreeable. Pt. waited patient thereafter and utilized her call light appropriately. Patient stated, "I feel great today." Pt. benefits from Bipap with her naps. Will continue to monitor.
[2019-03-15 15:00] VITALS: BP 123/81
[2019-03-15 18:00] VITALS: BP 137/86
--- NOTE | 2019-03-15 18:46 | NUR ---
Problems reprioritized. Patient report given, questions answered & plan of care reviewed with Sandra.
--- NOTE | 2019-03-15 18:48 | NUR ---
Patient in room PCU 3021. I have received report from Chika MAYBERRY and had the opportunity to ask questions and assume patient care.
[2019-03-15] MEDS: heparin, porcine 5000 units/ml vial SQ SCH (21:01)
[2019-03-15] MEDS: insulin glargine (Lantus) pen - multi-dose SQ SCH (21:23)
--- NOTE | 2019-03-15 21:26 | NUR ---
Patient given her 60 units of scheduled Lantus which she has been getting and is what she takes at home but since her AM BG this morning was 71 she was also given a snack at this time. Her current BG is 111.
[2019-03-15 22:00] VITALS: BP 126/83
[2019-03-16 02:00] VITALS: BP 131/84
--- NOTE | 2019-03-16 06:28 | NUR ---
Problems reprioritized. Patient report given, questions answered & plan of care reviewed with Chika MAYBERRY.
--- NOTE | 2019-03-16 06:33 | NUR ---
Patient in room PCU 3021. I have received report from Sandra and had the opportunity to ask questions and assume patient care.
[2019-03-16 07:00] VITALS: BP 133/78
--- NOTE | 2019-03-16 07:15 | NUR ---
Assessed FSBG, decreased at 49, pt asymptomatic, notified primary RN. Primary RN to administer oral glucose. 0745 Reassessed FSBG 52, pt remains asymptomatic. 0752 Administered oral glucose shot per MD order. 0810 Reassessed FSBG at 148.
[2019-03-16] MEDS: dextrose ORAL solution 15 GM/59 ML bottle PO PRN ×2 (07:22→07:52)
[2019-03-16 07:35] LABS: BASOPHILS # (AUTO) 0.1 X10'3 (0-0.2); BASOPHILS % (AUTO) 0.9 % (0-1); EOSINOPHILS # (AUTO) 0.3 X10'3 (0-0.9); EOSINOPHILS % (AUTO) 3.5 % (0-6); HEMATOCRIT 31.5 % (35.0-45.0); HEMOGLOBIN 10.6 g/dl (12.0-16.0); LYMPHOCYTES # (AUTO) 2.4 X10'3 (1.1-4.8); LYMPHOCYTES % (AUTO) 26.2 % (21-51); MEAN CORPUSCULAR HEMOGLOBIN 31.4 PG (27.0-31.0); MEAN CORPUSCULAR HGB CONC 33.7 g/dL (33.0-36.5); MEAN CORPUSCULAR VOLUME 93.4 FL (78-98); MEAN PLATELET VOLUME 8.4 FL (7.4-10.4); MONOCYTES # (AUTO) 0.7 X10'3 (0-0.9); MONOCYTES % (AUTO) 8.2 % (2-12); NEUTROPHILS # (AUTO) 5.5 X10'3 (1.8-7.7); NEUTROPHILS % (AUTO) 61.2 % (42-75); PLATELET COUNT 350 X10'3 (140-440); RED BLOOD COUNT 3.38 X10'6 (4.20-5.60)
[2019-03-16 07:49] LABS: ALANINE AMINOTRANSFERASE 30 U/L (12-78); ALBUMIN 2.3 G/DL (3.4-5.0); ALBUMIN/GLOBULIN RATIO 0.7 (1.1-1.5); ALKALINE PHOSPHATASE 71 IU/L (46-116); ANION GAP 5 (8-16); ASPARTATE AMINO TRANSFERASE 18 U/L (10-37); BILIRUBIN,TOTAL 0.6 MG/DL (0.1-1.0); BLOOD UREA NITROGEN 18 MG/DL (7-18); BUN/CREATININE RATIO 15.7 (6.6-38.0); CHLORIDE 110 MMOL/L (99-107); CREATININE 1.15 MG/DL (0.40-0.90); GLUCOSE 50 MG/DL (70-104); POTASSIUM 3.7 MMOL/L (3.5-5.1); SODIUM 144 MMOL/L (135-145); TOTAL CARBON DIOXIDE 28.6 MMOL/L (24-32); TOTAL PROTEIN 5.7 G/DL (6.4-8.2); eGFR 51 ML/MIN
[2019-03-16] MEDS: K and/or MAG REPLACEMENT MC SCH ×2 (08:00→19:24)
--- NOTE | 2019-03-16 08:03 | NUR ---
Patients blood sugar was 49, patient is asymptomatic. Oral dextrose administered x2, rechecked blood sugar and it was 52, patient continues to be asymptomatic. Patient is eating breakfast now, will recheck in 15 minutes.
[2019-03-16] MEDS: fenofibrate 145mg tablet PO SCH (08:05)
[2019-03-16] MEDS: gabapentin 100mg capsule PO SCH (08:06)
[2019-03-16] MEDS: metoclopramide 10mg tablet PO SCH ×2 (08:06→19:24)
[2019-03-16] MEDS: lisinopril 20mg tablet PO SCH (08:06)
[2019-03-16] MEDS: pantoprazole 40mg Tablet.DR PO SCH (08:06)
[2019-03-16] MEDS: clopidogrel 75mg tablet PO SCH (08:07)
[2019-03-16] MEDS: diltiazem CD 120mg capsule (once-daily) PO SCH (08:07)
[2019-03-16] MEDS: carVEDilol 12.5mg tablet PO SCH ×2 (08:07→19:24)
[2019-03-16] MEDS: aspirin 81mg tablet.DR PO SCH (08:07)
[2019-03-16] MEDS: atorvastatin 20mg tablet PO SCH (08:07)
[2019-03-16] MEDS: heparin, porcine 5000 units/ml vial SQ SCH ×2 (08:08→19:24)
--- NOTE | 2019-03-16 08:36 | NUR ---
Patients blood glucose is 148, patient is resting comfortably with no symptoms. Will continue to monitor.
--- NOTE | 2019-03-16 09:44 | NUR ---
Patient ate 75% of her meal with 35 carbs consumed, patient was not covered with insulin do her trends and low blood glucose this AM. Will continue to monitor.
[2019-03-16] MEDS: ondansetron/PF 4mg/2ml inj IV PRN (10:36)
--- NOTE | 2019-03-16 10:41 | NUR ---
Patient complains of nausea. PRN Zofran given, pending effectiveness. MD has been notified of blood glucose this AM, nausea and diarrhea this AM. Patient stated she has diarrhea on and off at home and when her stomach hurts she usually takes a shower. Pt. was offered a shower. Patient denies any chest pain, dyspnea or neurological deficits. Vital signs are stable, WBC WNL. Will continue to monitor. If patient has another loose stool, will obtain c-diff sample per MD orders.
[2019-03-16 11:00] VITALS: BP 134/88
[2019-03-16] MEDS: insulin Lispro (HumaLOG) vial - multi-dose SQ SCH ×2 (13:44→19:19)
[2019-03-16] MEDS ORDERED: proCHLORperazine 10 MG/2 ml inj IV PRN (14:00)
--- NOTE | 2019-03-16 14:13 | NUR ---
Received orders from Dr Ng for Compazine 5mg IV PRN Q6H for nausea/vomiting as well as instructions to ambulate patient 4x day.
[2019-03-16 15:00] VITALS: BP 150/80
--- NOTE | 2019-03-16 16:56 | NUR ---
PIV to LFA infiltrated. Nursing unsuccsessful at placing new PIV. PICC nurse paged to assist. Patient reported feeling better after administration of compazine. Patient had been educated thoroughly on early ambulation and getting OOB. Pt was cooperative after education provided.
[2019-03-16 18:00] VITALS: BP 147/93
--- NOTE | 2019-03-16 18:20 | NUR ---
Patient in room PCU 3021. I have received report from Chika MAYBERRY and had the opportunity to ask questions and assume patient care.
--- NOTE | 2019-03-16 18:20 | NUR ---
Problems reprioritized. Patient report given, questions answered & plan of care reviewed with Sandra.
[2019-03-16] MEDS: mag hydrox/Alum hydrox/simeth 30ml oral suspension PO PRN (20:07)
--- NOTE | 2019-03-16 20:49 | NUR ---
Spoke with Dr. Harper regarding patient's Lantus dose since she has been getting 60 units of Lantus QHS and this is what she takes at home but she had a low of 49 this AM. Her current blood sugar is 183 and she has good PO intake so he said to go ahead and give her the usual dose of 60 units tonight and if she has another low tomorrow then we will re-evaluate changing her dose.
[2019-03-16] MEDS: insulin glargine (Lantus) pen - multi-dose SQ SCH (21:26)
--- NOTE | 2019-03-16 23:12 | NUR ---
Patient refused 2200 vitals.
[2019-03-17 02:00] VITALS: BP 124/78
[2019-03-17 06:00] VITALS: BP 134/78
--- NOTE | 2019-03-17 06:12 | NUR ---
Problems reprioritized. Patient report given, questions answered & plan of care reviewed with Elis MAYBERRY.
--- NOTE | 2019-03-17 06:14 | NUR ---
Patient in room PCU 3021. I have received report from Sandra MAYBERRY and had the opportunity to ask questions and assume patient care.
--- NOTE | 2019-03-17 07:14 | NUR ---
Assessed FSBG, low at 43. Notified primary RN, Elis. Advised that patient is drowsy, unlikely to tolerate PO.
[2019-03-17] MEDS: clopidogrel 75mg tablet PO SCH (07:50)
[2019-03-17] MEDS: metoclopramide 10mg tablet PO SCH ×2 (07:52→19:33)
[2019-03-17] MEDS: fenofibrate 145mg tablet PO SCH (07:53)
[2019-03-17] MEDS: pantoprazole 40mg Tablet.DR PO SCH (07:53)
[2019-03-17] MEDS: diltiazem CD 120mg capsule (once-daily) PO SCH (07:53)
[2019-03-17] MEDS: atorvastatin 20mg tablet PO SCH (07:53)
[2019-03-17] MEDS: carVEDilol 12.5mg tablet PO SCH ×2 (07:53→19:33)
[2019-03-17] MEDS: gabapentin 100mg capsule PO SCH (07:53)
[2019-03-17] MEDS: lisinopril 20mg tablet PO SCH (07:56)
[2019-03-17] MEDS: aspirin 81mg tablet.DR PO SCH (07:56)
[2019-03-17] MEDS: heparin, porcine 5000 units/ml vial SQ SCH ×2 (07:57→19:33)
[2019-03-17] MEDS: K and/or MAG REPLACEMENT MC SCH ×2 (08:00→19:32)
--- NOTE | 2019-03-17 09:17 | NUR ---
AM blood sugar not covered due to BG 43 and having to give 50ml of D50. After D50 administered, BG 144.
[2019-03-17 11:00] VITALS: BP 120/66
[2019-03-17] MEDS: insulin Lispro (HumaLOG) vial - multi-dose SQ SCH ×2 (13:44→18:49)
[2019-03-17 15:00] VITALS: BP 140/83
[2019-03-17 18:00] VITALS: BP 153/92
--- NOTE | 2019-03-17 18:00 | NUR ---
Problems reprioritized. Patient report given, questions answered & plan of care reviewed with Sandra MAYBERRY.
--- NOTE | 2019-03-17 18:12 | NUR ---
Patient in room PCU 3021. I have received report from Elis MAYBERRY and had the opportunity to ask questions and assume patient care.
[2019-03-17] MEDS ORDERED: insulin glargine (Lantus) pen - multi-dose SQ SCH (21:00)
[2019-03-17 22:00] VITALS: BP 156/99
[2019-03-18 02:00] VITALS: BP 133/81
[2019-03-18 06:00] VITALS: BP 161/92
--- NOTE | 2019-03-18 06:09 | NUR ---
Problems reprioritized. Patient report given, questions answered & plan of care reviewed with Jessica MAYBERRY.
--- NOTE | 2019-03-18 06:10 | NUR ---
Patient in room PCU 3021. I have received report from Sandra MAYBERRY and had the opportunity to ask questions and assume patient care.
[2019-03-18] MEDS: heparin, porcine 5000 units/ml vial SQ SCH (07:51)
[2019-03-18] MEDS: clopidogrel 75mg tablet PO SCH (07:52)
[2019-03-18] MEDS: diltiazem CD 120mg capsule (once-daily) PO SCH (07:52)
[2019-03-18] MEDS: carVEDilol 12.5mg tablet PO SCH (07:52)
[2019-03-18] MEDS: lisinopril 20mg tablet PO SCH (07:52)
[2019-03-18] MEDS: aspirin 81mg tablet.DR PO SCH (07:52)
[2019-03-18] MEDS: pantoprazole 40mg Tablet.DR PO SCH (07:52)
[2019-03-18] MEDS: fenofibrate 145mg tablet PO SCH (07:53)
[2019-03-18] MEDS: atorvastatin 20mg tablet PO SCH (07:53)
[2019-03-18] MEDS: gabapentin 100mg capsule PO SCH (07:53)
[2019-03-18] MEDS: metoclopramide 10mg tablet PO SCH (07:56)
[2019-03-18] MEDS: insulin Lispro (HumaLOG) vial - multi-dose SQ SCH ×2 (08:04→14:11)
[2019-03-18] MEDS ORDERED: ATOR20TA66 PO (10:10)
[2019-03-18] MEDS ORDERED: ASPI-1071 PO (10:10)
[2019-03-18] MEDS ORDERED: CARCD120C PO (10:10)
--- NOTE | 2019-03-18 10:41 | NUR ---
Per Maryam FRAZIER ok to discontinue Neuro checks q4
[2019-03-18 11:00] VITALS: BP 133/91
--- NOTE | 2019-03-18 11:23 | NUR ---
Called in new prescriptions to preferred pharmacy [facility] in [place] on [address] at [phone] to [place].
--- NOTE | 2019-03-18 11:50 | NUR ---
Patient provided with education regarding stroke, signs and symptoms of stroke, warning signs, smoking cessation, safe use of equipment and fall precautions in relation to stroke, as well as rehab after a stroke. Patient states her son gets education on it so he looks out for her. Encouraged patient to also be educated on her own condition and the steps to be taken on identifying a stroke, when to call for help, and prevention. Patient was passive during education provision. Some reinforcement needed.
[2019-03-18] MEDS: ondansetron/PF 4mg/2ml inj IV PRN (13:59)
--- NOTE | 2019-03-18 14:20 | NUR ---
Paged psychotherapist social worker regarding concerns regarding claim for paid family leave.
--- NOTE | 2019-03-18 14:50 | NUR ---
Per MD orders patient is stable for discharge home with home health to follow and outpatient PT. Prescriptions called into preferred pharmacy [facility] in [place] on [address] . Reviewed discharge instructions with patient and at bedside; all questions and concerns answered. Telemonitoring discontinued, PIV discontinued cannula intact. All belongings sent with patient. Transferred to private vehicle via wheelchair accompanied by .
== END 2019-03-18 15:09 | disposition home health service (06) | DRG 190 ==
LOC: ER 23:59 → ED HOLD 03-10 04:02 → CMPBEDREQ 03-10 05:14 → PCU 3S 03-10 05:14
PROVIDERS: ADMIT Internal Medicine; ATTEND Internal Medicine
PROC: B32T1ZZ Computerized Tomography (CT Scan) of Left Pulmonary Artery using Low Osmolar Contrast (ICD-10-PCS; 2019-03-10)
PROC: B32S1ZZ Computerized Tomography (CT Scan) of Right Pulmonary Artery using Low Osmolar Contrast (ICD-10-PCS; 2019-03-10)
PROC: 5A09357 Assistance with Respiratory Ventilation, Less than 24 Consecutive Hours, Continuous Positive Airway Pressure (ICD-10-PCS; principal; 2019-03-11)
PROC: 5A09357 Assistance with Respiratory Ventilation, Less than 24 Consecutive Hours, Continuous Positive Airway Pressure (ICD-10-PCS; 2019-03-12)
PROC: 5A09357 Assistance with Respiratory Ventilation, Less than 24 Consecutive Hours, Continuous Positive Airway Pressure (ICD-10-PCS; 2019-03-13)
PROC: 5A09357 Assistance with Respiratory Ventilation, Less than 24 Consecutive Hours, Continuous Positive Airway Pressure (ICD-10-PCS; 2019-03-14)
PROC: 5A09357 Assistance with Respiratory Ventilation, Less than 24 Consecutive Hours, Continuous Positive Airway Pressure (ICD-10-PCS; 2019-03-17)
PROC: 5A09357 Assistance with Respiratory Ventilation, Less than 24 Consecutive Hours, Continuous Positive Airway Pressure (ICD-10-PCS; 2019-03-18)
DX: I21.4 Non-ST elevation (NSTEMI) myocardial infarction (principal); E11.21 Type 2 diabetes mellitus with diabetic nephropathy; E11.40 Type 2 diabetes mellitus with diabetic neuropathy, unspecified; D68.59 Other primary thrombophilia; K31.84 Gastroparesis; E11.22 Type 2 diabetes mellitus with diabetic chronic kidney disease; E11.65 Type 2 diabetes mellitus with hyperglycemia; I25.10 Atherosclerotic heart disease of native coronary artery without angina pectoris; E66.2 Morbid (severe) obesity with alveolar hypoventilation; E11.43 Type 2 diabetes mellitus with diabetic autonomic (poly)neuropathy; I25.5 Ischemic cardiomyopathy; I13.0 Hypertensive heart and chronic kidney disease with heart failure and stage 1 through stage 4 chronic kidney disease, or unspecified chronic kidney disease; I50.9 Heart failure, unspecified; N18.9 Chronic kidney disease, unspecified; I25.2 Old myocardial infarction; Z88.1 Allergy status to other antibiotic agents; Z88.8 Allergy status to other drugs, medicaments and biological substances; F12.90 Cannabis use, unspecified, uncomplicated; Z86.73 Personal history of transient ischemic attack (TIA), and cerebral infarction without residual deficits; D64.9 Anemia, unspecified; E78.2 Mixed hyperlipidemia; Z91.14 Patient's other noncompliance with medication regimen; Z68.36 Body mass index [BMI] 36.0-36.9, adult; Z79.4 Long term (current) use of insulin; Z79.82 Long term (current) use of aspirin; Z83.3 Family history of diabetes mellitus; Z88.2 Allergy status to sulfonamides; Z90.49 Acquired absence of other specified parts of digestive tract; Z90.710 Acquired absence of both cervix and uterus; Z91.19 Patient's noncompliance with other medical treatment and regimen
CPT/HCPCS: 36415; 36600; 70450; 70544; 70551; 71275; 74174; 80053; 80061; 80305; 80320; 81001; 82803; 82948; 83036; 83735; 83880; 84100; 84484; 85018; 85025; 85610; 85651; 85730; 86140; 87045; 87046; 87081; 89055; 92508; 92616; 93005; 93306; 93880; 94010; 94660; 96365; 96372; 97110; 97116; 97162; 97530; 99291; C9113; G0378; J0780; J1644; J1650; J1815; J2405; J3475; J3490; J7030; J8597; Q9967